=== PATIENT | female | born 1985 | race Caucasian/White ===

== ENCOUNTER → 2016-03-03 | Outpatient (REF) | payer OTHER ==
[2016-03-03 18:46] LABS: MEAN CORPUSCULAR HEMOGLOBIN 29.9 pg (27.0-33.0); MEAN CORPUSCULAR HGB CONC 32.6 g/dl (32.0-36.5); MEAN CORPUSCULAR VOLUME 91.7 fl (80.0-96.0); RED CELL DISTRIBUTION WIDTH 12.8 % (11.5-14.5); WHITE BLOOD COUNT 7.8 K/mm3 (4.0-10.0)
[2016-03-03 19:33] LABS: ALBUMIN 3.9 GM/DL (3.2-5.2); ALBUMIN/GLOBULIN RATIO 1.26 (1.00-1.93); ALKALINE PHOSPHATASE 50 U/L (45-117); ALT/SGPT 15 U/L (12-78); ANION GAP 7 MEQ/L (8-16); AST/SGOT 9 U/L (15-37); BILIRUBIN,TOTAL 0.5 MG/DL (0.2-1.0); BLOOD UREA NITROGEN 18 MG/DL (7-18); CALCIUM LEVEL 8.7 MG/DL (8.5-10.1); CARBON DIOXIDE LEVEL 30 MEQ/L (21-32); CHLORIDE LEVEL 106 MEQ/L (98-107); CHOLESTEROL LEVEL 155 MG/DL (<200); CREATININE FOR GFR 0.77 MG/DL (0.55-1.02); FREE T4 1.02 NG/DL (0.76-1.46); GLOMERULAR FILTRATION RATE > 60.0 (>60); GLUCOSE, FASTING 81 MG/DL (70-105); POTASSIUM SERUM 3.9 MEQ/L (3.5-5.1); SODIUM LEVEL 143 MEQ/L (136-145); TRIGLYCERIDES LEVEL 104 MG/DL (<150)
== END ==
LOC: M SFHCLERA 10:44
PROVIDERS: ATTEND Family Medicine
DX: Z13.29 Encounter for screening for other suspected endocrine disorder (principal); Z87.448 Personal history of other diseases of urinary system; Z87.59 Personal history of other complications of pregnancy, childbirth and the puerperium; Z13.220 Encounter for screening for lipoid disorders; Z09 Encounter for follow-up examination after completed treatment for conditions other than malignant neoplasm
CPT/HCPCS: 80053; 80061; 81001; 84439; 84443; 85027; G0463

== ENCOUNTER → 2016-03-26 | Outpatient (REF) | payer OTHER | LOC: M SFHCLERA 17:50 | PROVIDERS: ATTEND Family Medicine | DX: Z12.4 Encounter for screening for malignant neoplasm of cervix (principal) ==

== ENCOUNTER → 2016-11-24 | Outpatient (REF) | payer OTHER | LOC: M SFHCLERA 11:32 | PROVIDERS: ATTEND Nurse Practitioner Family | DX: R30.0 Dysuria (principal) ==

== ENCOUNTER → 2016-11-25 | Outpatient (REF) | payer OTHER | LOC: M SFHCLERA 09:29 | PROVIDERS: ATTEND Nurse Practitioner Family | DX: R51 Headache (principal); R09.81 Nasal congestion ==

== ENCOUNTER → 2017-02-16 | Outpatient (REF) | payer OTHER ==
[2017-02-17 01:58] LABS: CHLAMYDIA DNA AMPLIFICATION NEGATIVE (NEGATIVE); GC DNA AMPLIFICATION NEGATIVE (NEGATIVE)
== END ==
LOC: M SFHCLERA 11:26
DX: R30.0 Dysuria (principal); M54.5 Low back pain